=== PATIENT | female | born 1990 ===

== ENCOUNTER 2017-01-19 05:35 | Inpatient (IN) | payer MEDICAID ==
[~2017-01-19] VITALS: Ht 149.9 cm; Wt 62.1 kg
[2017-01-22] MEDS ORDERED: PRENATAL VIT1 TAB PO (16:52)
[2017-01-22] MEDS ORDERED: MOTRIN-DPS800 MG PO (16:52)
[2017-01-22] MEDS ORDERED: FEOSOL-DPS325 MG PO (16:52)
[2017-01-22] MEDS ORDERED: COLACE-DPS100 MG PO (16:52)
[2017-01-22] MEDS ORDERED: PERCOCET 5 DPS1 TAB PO (16:53)
[2017-01-22] MEDS ORDERED: NIPPLECREAM TP (16:54)
--- NOTE | 2017-01-26 09:22 | OR ---
ADMIT: 01/19/2017 RM/LOC: 224 [facility] MR#: [id number] [id number] [facility] [address] [place], [place] [address] BRAD ANDERSON [address] [place] [address] Operative/Delivery Room Report SEX: F AGE: 26 : 1990 SURGERY DATE: 01/19/2017 SURGEON: Katy Ball MD PREOPERATIVE DIAGNOSES: 1. Term intrauterine at 39-0/7th weeks. 2. History of previous section. POSTOPERATIVE DIAGNOSES: 1. Term intrauterine at 39-0/7th weeks. 2. History of previous section. 3. 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 PROCEDURES: Repeat low transverse section of the right horn. RAIL SPECIALIST: Nadine Larry MD Resident FINDINGS: 1. Viable male infant, with scores of 8 and 9 and a weight of 5 pounds 14 ounces. Intact placenta with three-vessel cord. was noted to be in the right uterine horn. 2. 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 Normal tubes and ovaries bilaterally seen. ANESTHESIA: Spinal with Duramorph. ESTIMATED BLOOD LOSS: 300 mL. IV FLUIDS: 2000 mL of crystalloid. URINE OUTPUT: 150 mL. ANESTHESIA: 2 g of Ancef. INDICATIONS FOR PROCEDURE: This is a 26-year-old -1-0-1, who presents to Labor and Delivery for scheduled repeat section. Her is complicated by history of preeclampsia and delivery at 35 weeks for severe preeclampsia. The risks, benefits, and alternatives of section had been discussed previously. The patient understands TOLAC candidacy, she declines and she desires repeat . PROCEDURE IN DETAIL: The patient was taken to the operating room, where spinal anesthesia was placed. She was placed in dorsal supine position with a leftward tilt. She was prepped and draped in the usual sterile fashion. A time-out was performed. A Pfannenstiel incision was then made and carried down to the underlying fascia with a scalpel. The fascia was then incised bilaterally across the midline and clearing of subcutaneous tissue. The angles were extended bilaterally with Flowers scissors. Ayden's x2 were placed on the superior aspect of the fascia. The fascia was then dissected off ADMIT: 01/19/2017 RM/LOC: 224 [facility] MR#: [id number] [address] [address] BRAD ANDERSON [address] [place] [address] Operative/Delivery Room Report SEX: F AGE: 26 : 1990 bluntly from the underlying rectus, this was repeated inferiorly. Any midline adhesions were taken down sharply with Flowers scissors. Rectus muscles were then divided in the midline. Peritoneum was identified and entered bluntly. Peritoneal incision was extended bluntly. Bladder blade was placed with good visualization of lower uterine segment. Metzenbaum scissors were then used to create a bladder flap, which was developed digitally. Bladder blade was then replaced in this area. Hysterotomy incision was then made. head was then grasped, flexed, and then brought to the level of the incision. Nuchal cord x1 was noted. The rest of the then delivered and body cord x1-1/2 was noted which was reduced. Delayed cord clamping was employed x1 minute. The cord was clamped and cut. The infant was handed to the awaiting nursing staff. With gentle traction, the placenta then delivered and the uterus was exteriorized. Upon exteriorization, it was noted that the uterus was abnormal and there was only a tube and an ovary attached to the right aspect. With further examination, there was a small horn that was underdeveloped and non- gravid in appearance that was to the left of horn containing in the pelvis attached to the left cornu of that horn was a normal-appearing tube and ovary. Hysterotomy incision was then closed using 0 Vicryl in a running locked fashion. Second layer of imbrication was placed over this. The posterior cul-de-sac was then irrigated. Uterus was returned to the abdomen. Hysterotomy incision was noted to be hemostatic. Gutters were inspected, and any clots and debris were removed using a damp lap. Again, hemostasis was noted at the hysterotomy site. Rectus muscles were inspected and any areas of bleeding were cauterized with Bovie. The fascia was then closed using 0 PDS on a loop starting at the right angle moving to the left, knot was buried. Subcutaneous tissue was then irrigated. Any areas of bleeding were cauterized with Bovie. Subcutaneous tissue was reapproximated using 2-0 plain gut in a running fashion. The skin was then closed using 4-0 Vicryl in a subcuticular fashion. Sponge and instrument counts were correct x2. COMPLICATIONS: None. DISPOSITION: The patient is stable in recovery room, infant to nursery. Katy Ball MD/ abhinav JOB #: [id number] CC: Katy Ball, Attending Physician Savanna Christensen, Family Physician
--- NOTE | 2017-02-07 18:47 | DS ---
ADMIT: 01/19/2017 RM/LOC: 224 [facility] MR#: [id number] [address] [facility] [address] [place] [id number] BRAD ANDERSON [address] [place] [id number] Discharge Summary SEX: F AGE: 26 : 1990 ADMISSION DATE: 01/19/2017 DISCHARGE DATE: 01/21/2017 DIAGNOSES: 1. Term intrauterine at 39 and 0/7th weeks. 2. History of previous section. 3. 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 INDICATIONS FOR ADMISSION: This is a 26-year-old, G2, P0-1-0-1, who presented to Labor and Delivery for scheduled repeat section. Her has been complicated by history of prior section at 35 weeks and severe preeclampsia at that time. PROCEDURES PERFORMED DURING ADMISSION: Repeat section of the right uterine horn. HOSPITAL COURSE: The patient was admitted and underwent the above listed procedure. Her postoperative course was uncomplicated. By postoperative day number two, the patient was meeting all normal postoperative milestones and did desire to be discharged home. DISCHARGE INSTRUCTIONS: Patient was instructed to have pelvic rest for six weeks, which means nothing in the vagina. She was instructed to notify physician if she has fevers more than 100.4, pain that is not controlled by pain medications, heavy vaginal bleeding, symptoms of headaches, blurry vision, right upper quadrant pain, or anything else concerning for preeclampsia. She will follow up in two weeks for an incision check. DISCHARGE MEDICATIONS: 1. Percocet 5/325, 1-2 tablets p.o. q.4 hours p.r.n. pain, #30, no refills. 2. She is to continue to take her vitamin as previously prescribed. 3. Colace [id number] 100 mg twice daily. 4. She is also going to start on iron supplement of Feosol 325 mg twice daily. 5. Motrin 800 mg every 8 hours p.r.n. pain. 6. Zuniga's nipple cream. Katy Ball MD/ frank JOB #: [id number] CC: Katy Ball MD, Attending Physician Savanna Christensen MD, Family Physician
== END 2017-01-21 14:10 | disposition home or self-care (01) | DRG 766 ==
LOC: 2LDRP 05:35 → BC 05:35 → 2LDRP 05:36 → BC 01-25 08:00
PROC: 10D00Z1 Extraction of Products of Conception, Low, Open Approach (ICD-10-PCS; principal; 2017-01-19)
DX: O34.211 Maternal care for low transverse scar from previous cesarean delivery (principal); O34.03 Maternal care for unspecified congenital malformation of uterus, third trimester; Q51.3 Bicornate uterus; Q51.2 Other doubling of uterus; Z3A.39 39 weeks gestation of pregnancy; Z37.0 Single live birth